=== PATIENT | female | born 1965 | race Caucasian/White ===

== ENCOUNTER 2019-01-20 10:50 | Emergency (ER) | payer OTHER ==
[~2019-01-20] VITALS: Ht 154.9 cm; Wt 59.0 kg
[~2019-01-20 10:50] MED LIST: FIORICET 50-301 EACH; SYNTHROID50 MCG; ULTRAM50 MG
[2019-01-20] MEDS ORDERED: ULTRACET PO (12:22)
== END 2019-01-20 12:27 | disposition home or self-care (01) ==
LOC: ER 10:50
DX: G56.02 Carpal tunnel syndrome, left upper limb (principal)